=== PATIENT | male | born 1965 | race Caucasian/White ===

== ENCOUNTER → 2018-08-15 19:24 | Outpatient (REF) | payer OTHER, SELFPAY ==
[2018-08-15 19:40] LABS: Add Manual Diff / Slide Review NO; Basophils Percent Auto 0.5 % (0-2); Eosinophils Percent Auto 4.2 % (2-4); Hemoglobin 15.9 g/dL (13.5-17.5); Lymphocytes Percent Auto 37.4 % (25-40); Mean Corpuscular HGB Conc 34.4 % (30-36); Mean Corpuscular Volume 95.7 fL (80-100); Monocytes Percent Auto 9.3 % (3-14); Neutrophils Absolute Auto 2900 /uL (3000-5900); Neutrophils Percent Auto 48.6 % (50-75); Platelet Count 167 X10^3/uL (150-400); Red Blood Cell Count 4.81 X10^6/uL (4.5-5.9); Red Cell Distribution Width 12.5 % (11.6-14.8)
[2018-08-15 19:41] LABS: Alanine Aminotransferase 65 IU/L (21-72); Albumin 4.3 g/dL (3.5-5.0); Albumin Globulin Ratio 1.6 (1.0-2.8); Alkaline Phosphatase 57 U/L (38-126); Aspartate Aminotransferase 40 IU/L (17-59); BUN Creatinine Ratio 23.3 (6-22); Bilirubin Total 1.2 mg/dL (0.2-1.3); Blood Urea Nitrogen 14 mg/dL (9-20); Calcium 9.1 mg/dL (8.4-10.2); Carbon Dioxide 28 mmol/L (22-32); Chloride 101 mmol/L (98-107); Estimated Glomerular Filt Rate > 60.0 mL/min (>60); Globulin 2.7 g/dL (1.7-4.1); Glucose 162 mg/dL (70-100); HEMOLYSIS < 15 (0-50); Potassium 3.7 mmol/L (3.4-5.1); Sodium 139 mmol/L (137-145)
[2018-08-15 19:54] LABS: Hemoglobin A1C% w Est Avg Glu 10.5 % (4.0-6.0)
[2018-08-20 14:18] LABS: PSA, Total 0.6 ng/mL (< 4.1)
[2018-08-20 15:29] LABS: Estradiol 330 pg/mL (< 40)
== END ==
LOC: LAB 19:24
PROVIDERS: Visit Provider Nurse Practitioner Acute Care
DX: E29.1 Testicular hypofunction (principal); E66.3 Overweight; R73.01 Impaired fasting glucose
CPT/HCPCS: 80053; 82670; 83036; 84153; 84154; 84403; 85025

== ENCOUNTER → 2018-10-04 18:02 | Outpatient (REF) | payer OTHER, SELFPAY ==
[2018-10-08 11:48] LABS: Alanine Aminotransferase 52 IU/L (21-72); Albumin 4.4 g/dL (3.5-5.0); Albumin Globulin Ratio 1.8 (1.0-2.8); Alkaline Phosphatase 58 U/L (38-126); Aspartate Aminotransferase 58 IU/L (17-59); BUN Creatinine Ratio 22.9 (6-22); Bilirubin Total 1.1 mg/dL (0.2-1.3); Blood Urea Nitrogen 16 mg/dL (9-20); Calcium 8.9 mg/dL (8.4-10.2); Carbon Dioxide 26 mmol/L (22-32); Chloride 100 mmol/L (98-107); Estimated Glomerular Filt Rate > 60.0 mL/min (>60); Globulin 2.5 g/dL (1.7-4.1); Glucose 252 mg/dL (70-100); HEMOLYSIS < 15 (0-50); Sodium 139 mmol/L (137-145); Total Protein 6.9 g/dL (6.3-8.2)
[2018-10-08 11:53] LABS: Potassium 5.7 mmol/L (3.4-5.1)
== END ==
LOC: LAB 18:02
PROVIDERS: Visit Provider Nurse Practitioner Acute Care
DX: G89.29 Other chronic pain (principal); R60.9 Edema, unspecified
CPT/HCPCS: 80053

== ENCOUNTER → 2023-01-17 09:26 | Outpatient (CLI) | payer OTHER, SELFPAY ==
--- NOTE | 2023-01-17 | DI.RAD.S_ITS ---
PROCEDURE: XR LUMBAR SPINE 2-3V INDICATIONS: BACK SHOULDER PAIN TECHNIQUE: 3 views of the lumbar spine were acquired. COMPARISON: [facility], CT, CT CHEST ABDOMEN PELVIS WITH CONTRAST, 11/08/2022, 16:08. FINDINGS: Bones: 5 [id number] vertebrae are present. No substantial curvature or listhesis. Moderate multilevel degenerative changes with disc height loss, endplate spurring, and facet arthropathy. No lumbar vertebral body compression fracture identified. Soft tissues: Overlying bowel gas pattern is normal. Vascular calcifications are present. IMPRESSION: Multilevel degenerative changes of the lumbar spine. Dictated by: Elbert Canales M.D. on 01/17/2023 at 10:43 Approved by: Elbert Canales M.D. on 01/17/2023 at 10:47
--- NOTE | 2023-01-17 | DI.RAD.S_ITS ---
PROCEDURE: XR SHOULDER LT MIN 2V INDICATIONS: BACK SHOULDER PAIN TECHNIQUE: 3 views of the shoulder were acquired. COMPARISON: None. FINDINGS: Bones: No fractures or dislocations. No suspicious bony lesions. Visualized ribs appear intact. At least moderate AC joint hypertrophy. Soft tissues: No suspicious soft tissue calcifications. IMPRESSION: No acute fracture or dislocation identified. Degenerative changes of the acromioclavicular joint are present. If symptoms persist, follow-up radiographs and/or CT or MRI may be helpful for further evaluation. Dictated by: Elbert Canales M.D. on 01/17/2023 at 10:47 Approved by: Elbert Canales M.D. on 01/17/2023 at 10:49
== END ==
PROVIDERS: Referring Provider Internal Medicine Cardiovascular Disease; Visit Provider Internal Medicine Cardiovascular Disease
DX: M54.50 Low back pain, unspecified (principal); M47.816 Spondylosis without myelopathy or radiculopathy, lumbar region
CPT/HCPCS: 72100; 73030